=== PATIENT | female | born 1940 | race Two or more races ===

== ENCOUNTER → 2017-03-26 | Outpatient (CLI) | payer MEDICARE, OTHER ==
[~2017-03-26] VITALS: Ht 137.2 cm; Wt 77.0 kg
[~2017-03-26] MED LIST: ALEN70TA48 PO; AMLO-511 PO; CALC-761 PO; GABA-529 PO; LOSA100T29 PO; METF10002 PO; MULT1CAP32 PO; PANT40TA25 PO; SOLI5 PO
[2017-03-26 10:30] VITALS: BP 142/52
== END | disposition home or self-care (01) ==
LOC: SRCNTR 10:14
PROVIDERS: ATTEND Internal Medicine Cardiovascular Disease
DX: I10 Essential (primary) hypertension (principal); E11.9 Type 2 diabetes mellitus without complications; I45.10 Unspecified right bundle-branch block; Z88.8 Allergy status to other drugs, medicaments and biological substances; Z90.49 Acquired absence of other specified parts of digestive tract
CPT/HCPCS: 93005; G0463

== ENCOUNTER → 2017-03-27 | Outpatient (CLI) | payer MEDICARE, OTHER ==
[2017-03-27 11:33] LABS: BASOPHILS % (AUTO) 0.6 % (0.0-2.0); EOSINOPHILS % (AUTO) 5.1 % (1.0-6.0); HEMATOCRIT 37.2 % (36-46); HEMOGLOBIN 12.6 g/dL (12.0-16.0); LYMPHOCYTES # (AUTO) 1.9 K/uL (1.0-4.8); LYMPHOCYTES % (AUTO) 41.8 % (22.0-44.0); MEAN CORPUSCULAR HEMOGLOBIN 31.5 pg (26.0-34.0); MEAN CORPUSCULAR HGB CONC 33.9 G/dL (31.0-37.0); MEAN CORPUSCULAR VOLUME 93 fL (80-100); MONOCYTES # (AUTO) 0.5 K/uL (0.1-1.0); NEUTROPHILS # (AUTO) 1.9 K/uL (1.8-7.7); NEUTROPHILS % (AUTO) 42.5 % (40.0-70.0); PLATELET COUNT (AUTO) 227 K/uL (150-450); RED BLOOD CELL COUNT(AUTO) 4.01 MIL/uL (4.00-5.20); RED CELL DISTRIBUTION WIDTH 14.4 % (11.5-14.5); WHITE BLOOD COUNT (AUTO) 4.6 K/uL (4.5-11.0)
[2017-03-27 11:55] LABS: ALBUMIN 3.9 g/dL (3.4-5.0); BILIRUBIN,TOTAL 0.4 mg/dL (0.1-1.0); CALCIUM, TOTAL 9.7 mg/dL (8.8-10.5); CHOL/HDL RATIO 2.2 (3.9-5.7); CREATININE 0.99 mg/dL (0.60-1.30); POTASSIUM 4.8 mmol/L (3.5-5.1); TOTAL PROTEIN, SERUM 7.9 g/dL (6.4-8.2)
[2017-03-27 11:59] LABS: HEMOGLOBIN A1C 6.9 % (4.5-6.2)
== END | disposition home or self-care (01) ==
LOC: RADPV 09:09
PROVIDERS: ATTEND Internal Medicine Cardiovascular Disease
DX: I08.1 Rheumatic disorders of both mitral and tricuspid valves (principal); I27.20 Pulmonary hypertension, unspecified; I10 Essential (primary) hypertension; E78.5 Hyperlipidemia, unspecified; E11.9 Type 2 diabetes mellitus without complications
CPT/HCPCS: 83036; 93306

== ENCOUNTER → 2017-05-30 | Outpatient (CLI) | payer MEDICARE, OTHER ==
[~2017-05-30] VITALS: Ht 137.2 cm; Wt 76.0 kg
[~2017-05-30] MED LIST changes: +KETO10DR3 OP; +SENN-175 PO
[2017-05-30 10:23] VITALS: BP 129/40
== END | disposition home or self-care (01) ==
LOC: SRCNTR 10:18
PROVIDERS: ATTEND Internal Medicine Cardiovascular Disease
DX: E11.9 Type 2 diabetes mellitus without complications (principal); I10 Essential (primary) hypertension; K21.0 Gastro-esophageal reflux disease with esophagitis
CPT/HCPCS: G0463

== ENCOUNTER → 2017-09-13 | Outpatient (CLI) | payer MEDICARE, OTHER ==
[~2017-09-13] VITALS: Ht 137.2 cm; Wt 74.0 kg
[~2017-09-13] MED LIST changes: -METF10002 PO; +METF10004 PO
[2017-09-13 14:37] VITALS: BP 121/55
== END | disposition home or self-care (01) ==
LOC: SRCNTR 14:10
PROVIDERS: ATTEND Internal Medicine Cardiovascular Disease
DX: I10 Essential (primary) hypertension (principal); K21.9 Gastro-esophageal reflux disease without esophagitis; E11.9 Type 2 diabetes mellitus without complications
CPT/HCPCS: G0463

== ENCOUNTER → 2017-11-29 | Outpatient (CLI) | payer MEDICARE, OTHER ==
[~2017-11-29] VITALS: Ht 137.2 cm; Wt 72.0 kg
[2017-11-29 14:48] VITALS: BP 105/67
[2017-11-29 14:50] VITALS: BP 114/63
== END | disposition home or self-care (01) ==
LOC: SRCNTR 14:42
PROVIDERS: ATTEND Internal Medicine Cardiovascular Disease
DX: I10 Essential (primary) hypertension (principal); E11.9 Type 2 diabetes mellitus without complications; M19.90 Unspecified osteoarthritis, unspecified site; K20.9 Esophagitis, unspecified
CPT/HCPCS: G0463

== ENCOUNTER → 2018-01-29 | Outpatient (CLI) | payer MEDICARE, OTHER ==
[~2018-01-29] VITALS: Ht 137.2 cm; Wt 73.0 kg
[~2018-01-29] MED LIST changes: +LOSA100T20 PO; -LOSA100T29 PO; +METF-446 PO; -METF10004 PO; +METH85CR16 TP
[2018-01-29 14:49] VITALS: BP 147/51
== END | disposition home or self-care (01) ==
LOC: SRCNTR 14:42
PROVIDERS: ATTEND Internal Medicine Cardiovascular Disease
DX: I10 Essential (primary) hypertension (principal); K21.9 Gastro-esophageal reflux disease without esophagitis; E11.9 Type 2 diabetes mellitus without complications; M19.90 Unspecified osteoarthritis, unspecified site
CPT/HCPCS: G0463

== ENCOUNTER → 2018-04-02 | Outpatient (CLI) | payer MEDICARE, OTHER ==
[~2018-04-02] VITALS: Ht 137.2 cm; Wt 72.5 kg
[~2018-04-02] MED LIST changes: -LOSA100T20 PO; +LOSA100T58 PO; -SENN-175 PO; +SENN-176 PO
[2018-04-02 14:37] VITALS: BP 115/53
== END | disposition home or self-care (01) ==
LOC: SRCNTR 14:22
PROVIDERS: ATTEND Internal Medicine Cardiovascular Disease
DX: I10 Essential (primary) hypertension (principal); M25.561 Pain in right knee; M25.562 Pain in left knee; E11.9 Type 2 diabetes mellitus without complications; M19.90 Unspecified osteoarthritis, unspecified site; K21.9 Gastro-esophageal reflux disease without esophagitis
CPT/HCPCS: G0463

== ENCOUNTER → 2018-06-11 | Outpatient (CLI) | payer MEDICARE, OTHER ==
[~2018-06-11] VITALS: Ht 137.2 cm; Wt 71.5 kg
[~2018-06-11] MED LIST changes: +ALEN70TA10 PO; -ALEN70TA48 PO; +DOCU250C90 PO; +MULT1TAB66 PO
[2018-06-11 14:33] VITALS: BP 131/57
== END | disposition home or self-care (01) ==
LOC: SRCNTR 14:12
PROVIDERS: ATTEND Internal Medicine Cardiovascular Disease
DX: E11.9 Type 2 diabetes mellitus without complications (principal); K20.9 Esophagitis, unspecified; M19.90 Unspecified osteoarthritis, unspecified site; I10 Essential (primary) hypertension
CPT/HCPCS: G0463

== ENCOUNTER → 2018-08-15 | Outpatient (CLI) | payer MEDICARE, OTHER ==
[~2018-08-15] VITALS: Ht 137.2 cm; Wt 71.0 kg
[2018-08-15 14:07] VITALS: BP 94/36
== END | disposition home or self-care (01) ==
LOC: SRCNTR 14:00
PROVIDERS: ATTEND Internal Medicine Cardiovascular Disease
DX: I10 Essential (primary) hypertension (principal); K21.9 Gastro-esophageal reflux disease without esophagitis; E11.9 Type 2 diabetes mellitus without complications; M19.90 Unspecified osteoarthritis, unspecified site
CPT/HCPCS: G0463

== ENCOUNTER → 2019-04-03 | Outpatient (CLI) | payer MEDICARE, OTHER ==
[~2019-04-03] VITALS: Ht 137.2 cm; Wt 69.0 kg
[~2019-04-03] MED LIST changes: -AMLO-511 PO; +AMLO5TAB9 PO; +BRIM15OS OU; +DICL2.5D8 TP; -METH85CR16 TP; -SENN-176 PO
[2019-04-03 14:46] VITALS: BP 135/59
== END | disposition home or self-care (01) ==
LOC: SRCNTR 14:46
PROVIDERS: ATTEND Internal Medicine Cardiovascular Disease
DX: I10 Essential (primary) hypertension (principal); E11.9 Type 2 diabetes mellitus without complications; K20.9 Esophagitis, unspecified; M19.90 Unspecified osteoarthritis, unspecified site
CPT/HCPCS: G0463

== ENCOUNTER → 2019-10-15 | Outpatient (CLI) | payer MEDICARE, OTHER ==
[~2019-10-15] MED LIST changes: -ALEN70TA10 PO; +ALEN70TA65 PO; +AMLO-257 PO; -AMLO5TAB9 PO; +DOCU250C21 PO; -DOCU250C90 PO; +GABA-1216 PO; -GABA-529 PO; +PANT-31 PO; -PANT40TA25 PO
== END | disposition home or self-care (01) ==
LOC: SRCNTR 09:54
PROVIDERS: ATTEND Internal Medicine Cardiovascular Disease
DX: M79.652 Pain in left thigh (principal); E11.9 Type 2 diabetes mellitus without complications; I10 Essential (primary) hypertension; K21.9 Gastro-esophageal reflux disease without esophagitis; M19.90 Unspecified osteoarthritis, unspecified site
CPT/HCPCS: Q3014

== ENCOUNTER → 2019-11-20 | Outpatient (CLI) | payer MEDICARE, OTHER | END | disposition home or self-care (01) | LOC: SRCNTR 14:19 | PROVIDERS: ATTEND Internal Medicine Cardiovascular Disease | DX: E11.9 Type 2 diabetes mellitus without complications (principal); I10 Essential (primary) hypertension; K21.9 Gastro-esophageal reflux disease without esophagitis; M19.90 Unspecified osteoarthritis, unspecified site | CPT/HCPCS: Q3014 ==

== ENCOUNTER → 2020-01-01 | Outpatient (CLI) | payer MEDICARE, OTHER | END | disposition home or self-care (01) | LOC: SRCNTR 14:47 | PROVIDERS: ATTEND Internal Medicine Cardiovascular Disease | DX: I10 Essential (primary) hypertension (principal); E11.9 Type 2 diabetes mellitus without complications; K21.9 Gastro-esophageal reflux disease without esophagitis; M19.90 Unspecified osteoarthritis, unspecified site; Z88.8 Allergy status to other drugs, medicaments and biological substances; Z79.899 Other long term (current) drug therapy | CPT/HCPCS: Q3014 ==

== ENCOUNTER → 2020-03-15 | Outpatient (CLI) | payer MEDICARE, OTHER | END | disposition home or self-care (01) | LOC: SRCNTR 10:56 | PROVIDERS: ATTEND Internal Medicine Cardiovascular Disease | DX: E11.9 Type 2 diabetes mellitus without complications (principal); I10 Essential (primary) hypertension; K21.9 Gastro-esophageal reflux disease without esophagitis; M19.90 Unspecified osteoarthritis, unspecified site | CPT/HCPCS: Q3014 ==

== ENCOUNTER → 2020-04-27 | Outpatient (CLI) | payer MEDICARE, OTHER | END | disposition home or self-care (01) | LOC: SRCNTR 14:44 | PROVIDERS: ATTEND Internal Medicine Cardiovascular Disease | DX: E11.9 Type 2 diabetes mellitus without complications (principal); I10 Essential (primary) hypertension; K21.9 Gastro-esophageal reflux disease without esophagitis; M19.91 Primary osteoarthritis, unspecified site | CPT/HCPCS: Q3014 ==

== ENCOUNTER → 2020-06-15 | Outpatient (CLI) | payer MEDICARE, OTHER | END | disposition home or self-care (01) | LOC: SRCNTR 15:05 | PROVIDERS: ATTEND Internal Medicine Cardiovascular Disease | DX: K21.9 Gastro-esophageal reflux disease without esophagitis (principal); M19.90 Unspecified osteoarthritis, unspecified site; E11.9 Type 2 diabetes mellitus without complications; I10 Essential (primary) hypertension | CPT/HCPCS: Q3014 ==

== ENCOUNTER → 2020-08-19 | Outpatient (CLI) | payer MEDICARE, OTHER ==
[~2020-08-19] MED LIST changes: -MULT1TAB66 PO; +MULT1TAB67 PO
== END | disposition home or self-care (01) ==
LOC: SRCNTR 14:31
PROVIDERS: ATTEND Internal Medicine Cardiovascular Disease
DX: E11.9 Type 2 diabetes mellitus without complications (principal); I10 Essential (primary) hypertension; K21.9 Gastro-esophageal reflux disease without esophagitis; M19.90 Unspecified osteoarthritis, unspecified site; Z79.899 Other long term (current) drug therapy; Z79.84 Long term (current) use of oral hypoglycemic drugs; Z88.8 Allergy status to other drugs, medicaments and biological substances
CPT/HCPCS: Q3014

== ENCOUNTER → 2020-09-17 | Outpatient (CLI) | payer MEDICARE, OTHER ==
[~2020-09-17] VITALS: Ht 137.2 cm; Wt 71.0 kg
[~2020-09-17] MED LIST changes: +CETI-450 PO; +CLON-820 PO; +OXYB5XL PO
[2020-09-17 11:13] VITALS: BP 133/64
== END | disposition home or self-care (01) ==
LOC: SRCNTR 10:44
PROVIDERS: ATTEND Internal Medicine Cardiovascular Disease
DX: E11.9 Type 2 diabetes mellitus without complications (principal); I10 Essential (primary) hypertension; K21.9 Gastro-esophageal reflux disease without esophagitis; J44.9 Chronic obstructive pulmonary disease, unspecified; M81.0 Age-related osteoporosis without current pathological fracture; Z79.84 Long term (current) use of oral hypoglycemic drugs; Z79.899 Other long term (current) drug therapy; Z88.6 Allergy status to analgesic agent
CPT/HCPCS: G0463

== ENCOUNTER → 2020-11-19 | Outpatient (CLI) | payer MEDICARE, OTHER ==
[~2020-11-19] VITALS: Ht 137.2 cm; Wt 70.0 kg
[~2020-11-19] MED LIST changes: +BUDE10.7 IH; -CLON-820 PO; +CLON0.1T2 PO; +IBUP-2070 PO; -KETO10DR3 OP; -SOLI5 PO
[2020-11-19 10:40] VITALS: BP 124/43
== END | disposition home or self-care (01) ==
LOC: SRCNTR 10:11
PROVIDERS: ATTEND Internal Medicine Cardiovascular Disease
DX: E11.9 Type 2 diabetes mellitus without complications (principal); I10 Essential (primary) hypertension; K21.9 Gastro-esophageal reflux disease without esophagitis; J44.9 Chronic obstructive pulmonary disease, unspecified; M19.90 Unspecified osteoarthritis, unspecified site
CPT/HCPCS: G0463; Z7500

== ENCOUNTER → 2021-01-19 | Outpatient (CLI) | payer MEDICARE, OTHER ==
[~2021-01-19] VITALS: Ht 137.2 cm; Wt 70.9 kg
[~2021-01-19] MED LIST changes: +DOCU-378 PO; -DOCU250C21 PO; +INFLUENZA VIRUS VACCINE QVS 2021-22 (6MO+)/PF 60 MCG/0.5 ML SYRINGE IM. ONE; +OXYB-34 PO; -OXYB5XL PO
[2021-01-19 10:15] VITALS: BP 138/64
== END | disposition home or self-care (01) ==
LOC: SRCNTR 09:57
PROVIDERS: ATTEND Internal Medicine Cardiovascular Disease
DX: Z23 Encounter for immunization (principal); I10 Essential (primary) hypertension; E11.9 Type 2 diabetes mellitus without complications; K21.9 Gastro-esophageal reflux disease without esophagitis; M19.90 Unspecified osteoarthritis, unspecified site; J44.9 Chronic obstructive pulmonary disease, unspecified
CPT/HCPCS: 90471; 90686; G0463

== ENCOUNTER → 2021-04-11 | Outpatient (CLI) | payer MEDICARE, OTHER ==
[~2021-04-11] VITALS: Ht 137.2 cm; Wt 71.0 kg
[~2021-04-11] MED LIST changes: -BUDE10.7 IH; -IBUP-2070 PO; -INFLUENZA VIRUS VACCINE QVS 2021-22 (6MO+)/PF 60 MCG/0.5 ML SYRINGE IM. ONE; -MULT1TAB67 PO
[2021-04-11 11:51] VITALS: BP 134/68
[2021-04-11 11:57] VITALS: BP 134/68
== END | disposition home or self-care (01) ==
LOC: SRCNTR 11:09
PROVIDERS: ATTEND Internal Medicine Cardiovascular Disease
DX: E11.9 Type 2 diabetes mellitus without complications (principal); I10 Essential (primary) hypertension; K21.9 Gastro-esophageal reflux disease without esophagitis; J44.9 Chronic obstructive pulmonary disease, unspecified; M19.90 Unspecified osteoarthritis, unspecified site
CPT/HCPCS: G0463

== ENCOUNTER → 2021-06-13 | Outpatient (CLI) | payer MEDICARE, OTHER ==
[~2021-06-13] VITALS: Ht 137.2 cm; Wt 70.8 kg
[2021-06-13 11:32] VITALS: BP 130/48
== END | disposition home or self-care (01) ==
LOC: SRCNTR 11:02
PROVIDERS: ATTEND Internal Medicine Cardiovascular Disease
DX: E11.9 Type 2 diabetes mellitus without complications (principal); I10 Essential (primary) hypertension; K21.9 Gastro-esophageal reflux disease without esophagitis; J44.9 Chronic obstructive pulmonary disease, unspecified; M19.90 Unspecified osteoarthritis, unspecified site; Z79.899 Other long term (current) drug therapy; Z88.8 Allergy status to other drugs, medicaments and biological substances
CPT/HCPCS: G0463

== ENCOUNTER → 2021-08-15 | Outpatient (CLI) | payer MEDICARE, OTHER ==
[~2021-08-15] VITALS: Ht 142.2 cm; Wt 71.9 kg
[2021-08-15 10:47] VITALS: BP 130/46
== END | disposition home or self-care (01) ==
LOC: SRCNTR 10:32
PROVIDERS: ATTEND Internal Medicine Cardiovascular Disease
DX: E11.9 Type 2 diabetes mellitus without complications (principal); I10 Essential (primary) hypertension; K21.9 Gastro-esophageal reflux disease without esophagitis; J44.9 Chronic obstructive pulmonary disease, unspecified; M19.90 Unspecified osteoarthritis, unspecified site
CPT/HCPCS: G0463; Z7500

== ENCOUNTER → 2021-10-17 | Outpatient (CLI) | payer MEDICARE, OTHER ==
[~2021-10-17] VITALS: Ht 142.2 cm; Wt 70.3 kg
[~2021-10-17] MED LIST changes: +DAPA5TAB PO
[2021-10-17 10:50] VITALS: BP 127/50
== END | disposition home or self-care (01) ==
LOC: SRCNTR 10:38
PROVIDERS: ATTEND Internal Medicine Cardiovascular Disease
DX: Z09 Encounter for follow-up examination after completed treatment for conditions other than malignant neoplasm (principal); I10 Essential (primary) hypertension; E11.9 Type 2 diabetes mellitus without complications; K21.9 Gastro-esophageal reflux disease without esophagitis; J44.9 Chronic obstructive pulmonary disease, unspecified; M19.90 Unspecified osteoarthritis, unspecified site
CPT/HCPCS: G0463; Z7500

== ENCOUNTER → 2021-12-19 | Outpatient (CLI) | payer MEDICARE, OTHER ==
[~2021-12-19] VITALS: Ht 142.2 cm; Wt 69.0 kg
[~2021-12-19] MED LIST changes: +CHL25 PO
[2021-12-19 10:21] VITALS: BP 107/36
== END | disposition home or self-care (01) ==
LOC: SRCNTR 10:03
PROVIDERS: ATTEND Internal Medicine Cardiovascular Disease
DX: I10 Essential (primary) hypertension (principal); Z09 Encounter for follow-up examination after completed treatment for conditions other than malignant neoplasm; E11.9 Type 2 diabetes mellitus without complications; K21.9 Gastro-esophageal reflux disease without esophagitis; M19.90 Unspecified osteoarthritis, unspecified site; J44.9 Chronic obstructive pulmonary disease, unspecified
CPT/HCPCS: G0463; Z7500

== ENCOUNTER → 2022-02-20 | Outpatient (CLI) | payer MEDICARE, OTHER ==
[~2022-02-20] VITALS: Ht 142.2 cm; Wt 66.0 kg
[~2022-02-20] MED LIST changes: -CALC-761 PO; +INFLUENZA VIRUS VACCINE QVS 2022-23 (6MO+)/PF 60 MCG/0.5 ML SYRINGE IM. ONE; -MULT1CAP32 PO; +NEO/5DRO7 OU; +TORS20TA5 PO
[2022-02-20 10:25] VITALS: BP 122/68
== END | disposition home or self-care (01) ==
LOC: SRCNTR 10:00
PROVIDERS: ATTEND Internal Medicine Cardiovascular Disease
DX: Z23 Encounter for immunization (principal); J44.9 Chronic obstructive pulmonary disease, unspecified; I10 Essential (primary) hypertension; E11.9 Type 2 diabetes mellitus without complications; M19.90 Unspecified osteoarthritis, unspecified site; K21.9 Gastro-esophageal reflux disease without esophagitis
CPT/HCPCS: 90686; 90471; G0463

== ENCOUNTER → 2022-04-26 | Outpatient (CLI) | payer MEDICARE, OTHER ==
[~2022-04-26] VITALS: Ht 142.2 cm; Wt 67.0 kg
[~2022-04-26] MED LIST changes: -CHL25 PO; -DICL2.5D8 TP; -INFLUENZA VIRUS VACCINE QVS 2022-23 (6MO+)/PF 60 MCG/0.5 ML SYRINGE IM. ONE
[2022-04-26 10:24] VITALS: BP 100/57
== END | disposition home or self-care (01) ==
LOC: SRCNTR 10:04
PROVIDERS: ATTEND Internal Medicine Cardiovascular Disease
DX: Z09 Encounter for follow-up examination after completed treatment for conditions other than malignant neoplasm (principal); I10 Essential (primary) hypertension; E11.9 Type 2 diabetes mellitus without complications; K21.9 Gastro-esophageal reflux disease without esophagitis; M19.90 Unspecified osteoarthritis, unspecified site; J44.9 Chronic obstructive pulmonary disease, unspecified; E87.1 Hypo-osmolality and hyponatremia
CPT/HCPCS: G0463; Z7500

== ENCOUNTER → 2022-06-26 | Outpatient (CLI) | payer MEDICARE, OTHER ==
[~2022-06-26] VITALS: Ht 142.2 cm; Wt 68.0 kg
[2022-06-26 10:31] VITALS: BP 116/48
== END | disposition home or self-care (01) ==
LOC: SRCNTR 10:12
PROVIDERS: ATTEND Internal Medicine Cardiovascular Disease
DX: Z09 Encounter for follow-up examination after completed treatment for conditions other than malignant neoplasm (principal); I10 Essential (primary) hypertension; E11.9 Type 2 diabetes mellitus without complications; K21.9 Gastro-esophageal reflux disease without esophagitis; J44.9 Chronic obstructive pulmonary disease, unspecified; M19.90 Unspecified osteoarthritis, unspecified site
CPT/HCPCS: G0463; Z7500

== ENCOUNTER → 2022-09-11 | Outpatient (CLI) | payer MEDICARE, OTHER ==
[~2022-09-11] VITALS: Ht 142.2 cm; Wt 68.0 kg
[~2022-09-11] MED LIST changes: -LOSA100T58 PO; +LOSA100T59 PO
[2022-09-11 10:29] VITALS: BP 128/50
== END | disposition home or self-care (01) ==
LOC: SRCNTR 10:22
PROVIDERS: ATTEND Internal Medicine Cardiovascular Disease
DX: Z09 Encounter for follow-up examination after completed treatment for conditions other than malignant neoplasm (principal); I10 Essential (primary) hypertension; E11.9 Type 2 diabetes mellitus without complications; K21.9 Gastro-esophageal reflux disease without esophagitis; J44.9 Chronic obstructive pulmonary disease, unspecified; M19.90 Unspecified osteoarthritis, unspecified site
CPT/HCPCS: G0463

== ENCOUNTER → 2023-01-17 | Outpatient (CLI) | payer MEDICARE, OTHER ==
[~2023-01-17] VITALS: Ht 142.2 cm; Wt 67.0 kg
[~2023-01-17] MED LIST changes: -CLON0.1T2 PO
[2023-01-17 10:20] VITALS: BP 136/52; PULSE 56; RESP 16; TEMP 98.6; O2SAT 98
== END | disposition home or self-care (01) ==
LOC: SRCNTR 09:56
PROVIDERS: ATTEND Internal Medicine Cardiovascular Disease
DX: I12.9 Hypertensive chronic kidney disease with stage 1 through stage 4 chronic kidney disease, or unspecified chronic kidney disease (principal); E11.22 Type 2 diabetes mellitus with diabetic chronic kidney disease; N18.30 Chronic kidney disease, stage 3 unspecified; Z09 Encounter for follow-up examination after completed treatment for conditions other than malignant neoplasm; K21.9 Gastro-esophageal reflux disease without esophagitis; J44.9 Chronic obstructive pulmonary disease, unspecified; M19.90 Unspecified osteoarthritis, unspecified site
CPT/HCPCS: G0463; Z7500

== ENCOUNTER → 2023-03-14 | Outpatient (CLI) | payer MEDICARE, OTHER ==
[~2023-03-14] VITALS: Ht 139.7 cm; Wt 66.0 kg
[~2023-03-14] MED LIST changes: -BRIM15OS OU; +BRIM5DRO32 OU; +FINE10TA PO
[2023-03-14 11:03] VITALS: BP 112/53; PULSE 58; RESP 18; TEMP 98.1; O2SAT 98
== END | disposition home or self-care (01) ==
LOC: SRCNTR 10:15
PROVIDERS: ATTEND Internal Medicine Cardiovascular Disease
DX: I12.9 Hypertensive chronic kidney disease with stage 1 through stage 4 chronic kidney disease, or unspecified chronic kidney disease (principal); E11.22 Type 2 diabetes mellitus with diabetic chronic kidney disease; N18.9 Chronic kidney disease, unspecified; M19.90 Unspecified osteoarthritis, unspecified site; J44.9 Chronic obstructive pulmonary disease, unspecified; E78.5 Hyperlipidemia, unspecified; K21.9 Gastro-esophageal reflux disease without esophagitis; Z88.8 Allergy status to other drugs, medicaments and biological substances; Z79.84 Long term (current) use of oral hypoglycemic drugs; Z79.899 Other long term (current) drug therapy
CPT/HCPCS: G0463; Z7500

== ENCOUNTER → 2023-05-16 | Outpatient (CLI) | payer MEDICARE, OTHER ==
[~2023-05-16] VITALS: Ht 142.2 cm; Wt 66.0 kg
[~2023-05-16] MED LIST changes: -NEO/5DRO7 OU
[2023-05-16 10:15] VITALS: BP 120/58; PULSE 78; RESP 18; TEMP 98.5; O2SAT 97
== END | disposition home or self-care (01) ==
LOC: SRCNTR 10:12
PROVIDERS: ATTEND Internal Medicine Cardiovascular Disease
DX: Z09 Encounter for follow-up examination after completed treatment for conditions other than malignant neoplasm (principal); I12.9 Hypertensive chronic kidney disease with stage 1 through stage 4 chronic kidney disease, or unspecified chronic kidney disease; E11.22 Type 2 diabetes mellitus with diabetic chronic kidney disease; N18.30 Chronic kidney disease, stage 3 unspecified; K21.9 Gastro-esophageal reflux disease without esophagitis; J44.9 Chronic obstructive pulmonary disease, unspecified; M19.90 Unspecified osteoarthritis, unspecified site
CPT/HCPCS: G0463

== ENCOUNTER → 2023-07-18 | Outpatient (CLI) | payer MEDICARE, OTHER ==
[~2023-07-18] VITALS: Ht 142.2 cm; Wt 67.0 kg
[2023-07-18 10:24] VITALS: BP 120/57; PULSE 66; RESP 16; TEMP 98; O2SAT 97
== END | disposition home or self-care (01) ==
LOC: SRCNTR 10:11
PROVIDERS: ATTEND Internal Medicine Cardiovascular Disease
DX: I12.9 Hypertensive chronic kidney disease with stage 1 through stage 4 chronic kidney disease, or unspecified chronic kidney disease (principal); E11.22 Type 2 diabetes mellitus with diabetic chronic kidney disease; N18.30 Chronic kidney disease, stage 3 unspecified; Z09 Encounter for follow-up examination after completed treatment for conditions other than malignant neoplasm; J44.9 Chronic obstructive pulmonary disease, unspecified; K21.9 Gastro-esophageal reflux disease without esophagitis; M19.90 Unspecified osteoarthritis, unspecified site
CPT/HCPCS: G0463

== ENCOUNTER → 2023-09-19 | Outpatient (CLI) | payer MEDICARE, OTHER ==
[~2023-09-19] VITALS: Ht 142.2 cm; Wt 67.0 kg
[~2023-09-19] MED LIST changes: -CETI-450 PO
[2023-09-19 10:19] VITALS: BP 114/46; PULSE 54; RESP 16; TEMP 98; O2SAT 97
== END | disposition home or self-care (01) ==
LOC: SRCNTR 10:12
PROVIDERS: ATTEND Internal Medicine Cardiovascular Disease
DX: I12.9 Hypertensive chronic kidney disease with stage 1 through stage 4 chronic kidney disease, or unspecified chronic kidney disease (principal); E11.22 Type 2 diabetes mellitus with diabetic chronic kidney disease; N18.31 Chronic kidney disease, stage 3a; J44.9 Chronic obstructive pulmonary disease, unspecified; M19.90 Unspecified osteoarthritis, unspecified site; E78.5 Hyperlipidemia, unspecified; K21.9 Gastro-esophageal reflux disease without esophagitis; Z79.899 Other long term (current) drug therapy; Z88.8 Allergy status to other drugs, medicaments and biological substances
CPT/HCPCS: G0463; Z7500

== ENCOUNTER → 2024-01-28 | Outpatient (CLI) | payer MEDICARE, OTHER ==
[~2024-01-28] VITALS: Ht 142.2 cm; Wt 68.0 kg
[~2024-01-28] MED LIST changes: +INFLUENZA VIRUS VACCINE TVS IM. ONE; +ROSU10TA72 PO; +[UNRECOGNIZED DRUG - OTHER] IM. ONE
[2024-01-28 10:37] VITALS: BP 97/51; PULSE 54; RESP 16; TEMP 98.1; O2SAT 97
== END | disposition home or self-care (01) ==
LOC: SRCNTR 10:17
PROVIDERS: ATTEND Internal Medicine Cardiovascular Disease
DX: Z23 Encounter for immunization (principal); Z13.6 Encounter for screening for cardiovascular disorders; I12.9 Hypertensive chronic kidney disease with stage 1 through stage 4 chronic kidney disease, or unspecified chronic kidney disease; E11.22 Type 2 diabetes mellitus with diabetic chronic kidney disease; N18.31 Chronic kidney disease, stage 3a; J44.9 Chronic obstructive pulmonary disease, unspecified; M19.90 Unspecified osteoarthritis, unspecified site; K21.9 Gastro-esophageal reflux disease without esophagitis; Z88.8 Allergy status to other drugs, medicaments and biological substances; Z79.899 Other long term (current) drug therapy; Z79.84 Long term (current) use of oral hypoglycemic drugs
CPT/HCPCS: 90471; G0463

== ENCOUNTER → 2024-05-26 | Outpatient (CLI) | payer MEDICARE, OTHER ==
[~2024-05-26] VITALS: Ht 139.7 cm; Wt 69.0 kg
[~2024-05-26] MED LIST changes: -INFLUENZA VIRUS VACCINE TVS IM. ONE; -METF-446 PO; -[UNRECOGNIZED DRUG - OTHER] IM. ONE
[2024-05-26 10:30] VITALS: BP 106/40; PULSE 48; RESP 16; TEMP 98; O2SAT 98
== END | disposition home or self-care (01) ==
LOC: SRCNTR 10:11
PROVIDERS: ATTEND Internal Medicine Cardiovascular Disease
DX: I12.9 Hypertensive chronic kidney disease with stage 1 through stage 4 chronic kidney disease, or unspecified chronic kidney disease (principal); E11.22 Type 2 diabetes mellitus with diabetic chronic kidney disease; N18.30 Chronic kidney disease, stage 3 unspecified; E78.5 Hyperlipidemia, unspecified; J44.9 Chronic obstructive pulmonary disease, unspecified; Z79.84 Long term (current) use of oral hypoglycemic drugs; Z79.899 Other long term (current) drug therapy; Z88.6 Allergy status to analgesic agent
CPT/HCPCS: G0463

== ENCOUNTER → 2024-07-30 | Outpatient (CLI) | payer MEDICARE, OTHER ==
[~2024-07-30] VITALS: Ht 142.2 cm; Wt 69.0 kg
[~2024-07-30] MED LIST changes: +CETI-450 PO
[2024-07-30 10:08] VITALS: BP 121/45; PULSE 48; RESP 16; TEMP 98; O2SAT 98
== END | disposition home or self-care (01) ==
LOC: SRCNTR 09:49
PROVIDERS: ATTEND Internal Medicine Cardiovascular Disease
DX: I12.9 Hypertensive chronic kidney disease with stage 1 through stage 4 chronic kidney disease, or unspecified chronic kidney disease (principal); E11.22 Type 2 diabetes mellitus with diabetic chronic kidney disease; N18.30 Chronic kidney disease, stage 3 unspecified; E78.5 Hyperlipidemia, unspecified; J44.9 Chronic obstructive pulmonary disease, unspecified; Z79.84 Long term (current) use of oral hypoglycemic drugs; Z79.899 Other long term (current) drug therapy; Z88.6 Allergy status to analgesic agent
CPT/HCPCS: G0463; Z7500

== ENCOUNTER → 2025-02-11 | Outpatient (CLI) | payer MEDICARE, OTHER ==
[~2025-02-11] VITALS: Ht 142.2 cm; Wt 68.4 kg
[~2025-02-11] MED LIST changes: -CETI-450 PO; +CETI10TA77 PO; +INFLUENZA VIRUS VACCINE TVS IM. ONE; +NIFE-40 PO; -ROSU10TA72 PO; +ROSU10TA98 PO; +[UNRECOGNIZED DRUG - OTHER] IM. ONE
[2025-02-11 10:06] VITALS: BP 107/33; PULSE 42; RESP 18; TEMP 97.7; O2SAT 96
== END | disposition home or self-care (01) ==
LOC: SRCNTR 09:51
PROVIDERS: ATTEND Internal Medicine Cardiovascular Disease
DX: R00.1 Bradycardia, unspecified (principal); M79.89 Other specified soft tissue disorders; Z23 Encounter for immunization; I12.9 Hypertensive chronic kidney disease with stage 1 through stage 4 chronic kidney disease, or unspecified chronic kidney disease; E11.22 Type 2 diabetes mellitus with diabetic chronic kidney disease; N18.30 Chronic kidney disease, stage 3 unspecified; E78.5 Hyperlipidemia, unspecified; J44.9 Chronic obstructive pulmonary disease, unspecified; M19.90 Unspecified osteoarthritis, unspecified site; Z88.6 Allergy status to analgesic agent; Z79.899 Other long term (current) drug therapy; Z79.84 Long term (current) use of oral hypoglycemic drugs; Z95.0 Presence of cardiac pacemaker
CPT/HCPCS: 90471; 93005; G0463